=== PATIENT | female | born 1945 | race Caucasian/White ===

== ENCOUNTER → 2016-07-04 | Day surgery (SDC) | payer MEDICARE, BC ==
[~2016-07-04] MED LIST: ALLEGRA PO; ASPIRIN PO; ATORVASTATIN CA40 MG PO; BENADRYL25 M3 PO; CALCIUM 500 + D1 TAB PO; CALCIUM 600 +1 EAC1 PO; CELEBREX PO; CRESTOR PO; DIPROLENE 0.05%30 ML; FLOMAX0.4 M1 PO; FOSAMAX PO; GABAPENTIN400 M2 PO; LEXAPRO PO; NEURONTIN PO; OLUX-E 0.05% F100 GM; PERCOCET 10/3251 TAB PO; PREMARIN PO; PREMARIN0.3 MG PO; PROTONIX PO; PROTOPIC100 G1; SINGULAIR PO; URECHOLINE50 MG PO
--- NOTE | ~2016-07-04 | OR ---
Unit #: [id number] #: [id number] Patient: LINDA LOCO [id number] [address] [place], [place] [address] [id number] MR#: [id number] NAME: LINDA LOCO ROOM: Date of Procedure: 07/04/2016 Admission Date: 07/04/2016 Surgeon: Edwin Hunter M.D. : 1945 Attending Physician: Edwin Hunter M.D. OPERATIVE REPORT PREOPERATIVE DIAGNOSES Back pain, radiculopathy, postlumbar fusion, piriformis syndrome. POSTOPERATIVE DIAGNOSES Back pain, radiculopathy, postlumbar fusion, piriformis syndrome. PROCEDURE PERFORMED Left piriformis injection with intravenous sedation. DESCRIPTION OF PROCEDURE The patient was placed in a right lateral decubitus position. 2 mg of Versed were given for sedation and anxiolysis. Sterile prep and drape of the left buttock area was performed. The landmarks were identified and marked for piriformis injection usp between the greater trochanter at the initial tuberosity, a 25 gauge 2.5 inch needle was advanced perpendicularly to the skin. The needle was moved slightly lateral and cephalad until paresthesia achieved down the lower extremity at this point. Needle was retracted slightly. A total of 10 mL of 0.25% bupivacaine and 40 mg of Depo-Medrol were deposited. The patient tolerated this part of procedure well and was discharged to recovery room in stable condition. Dictated by... Paris Carney/jennifer TD: 07/25/2016 22:38 JOB #: [id number] CC: Olga Lidia/invision Please Delete OPERATIVE REPORT Page 1 of 1 X Edwin Hunter MD X PROCEDURE OPERATIVE NOTE
== END | disposition home or self-care (01) ==
LOC: CCSC 09:37
DX: G57.02 Lesion of sciatic nerve, left lower limb (principal); M54.9 Dorsalgia, unspecified; Z88.6 Allergy status to analgesic agent; Z91.048 Other nonmedicinal substance allergy status; Z79.52 Long term (current) use of systemic steroids; Z79.899 Other long term (current) drug therapy; Z98.1 Arthrodesis status
CPT/HCPCS: J1040; J2250

== ENCOUNTER → 2016-10-17 | Day surgery (SDC) | payer MEDICARE, BC ==
--- NOTE | ~2016-10-17 | OR ---
Unit #: [id number] #: [id number] Patient: LINDA LOCO [id number] [address] [place], [place] [address] [id number] O MR#: [id number] NAME: LINDA LOCO ROOM: Date of Procedure: 10/17/2016 Admission Date: 10/17/2016 Surgeon: Edwin Hunter M.D. : 1945 Attending Physician: Edwin Hunter M.D. Primary Care Physician: Generic Doctor Not In System OPERATIVE REPORT PREOPERATIVE DIAGNOSES Postlumbar fusion, back pain, degenerative sacroiliac joint, left sacroiliac joint pain. POSTOPERATIVE DIAGNOSES Postlumbar fusion, back pain, degenerative sacroiliac joint, left sacroiliac joint pain. PROCEDURE PERFORMED Left sacroiliac joint injection with intravenous sedation and fluoroscopic guidance for needle localization. INDICATIONS FOR PROCEDURE The patient is a 71-year-old female, status post extensive lumbar fusion. She has increased pain down to her left buttock, hip, and around to the groin. This consistent with sacroiliac joint dysfunction. This has been a problem in the past and response to sacroiliac joint injections, last done about 3 years ago. Based on history, pathology, symptomatology, and treatment response, plan is to repeat a sacroiliac joint injection today. DESCRIPTION OF PROCEDURE The patient was placed in a prone position. Standard monitors were applied. 2 mg of Versed were given for sedation and anxiolysis, which were adequate. Vital signs remained stable. Sterile prep and drape overlying the middle of the left sacroiliac joint was performed. A 22-gauge Quincke point needle was then advanced with fluoroscopic guidance to put the needle tip to within the edge of the left sacroiliac joint. After finally confirming proper positioning with fluoroscopy and radiographic contrast, a dose of 80 mg of Depo-Medrol and 5 mL of 0.25% bupivacaine were deposited. The needle was flushed and removed. The patient tolerated the procedure otherwise well and was discharged to the recovery room in stable condition. Dictated by... Paris Carney/jennifer TD: 10/17/2016 11:24 JOB #: [id number] CC: [facility] Unit #: [id number] #: [id number] Patient: LINDA LOCO OPERATIVE REPORT Page 1 of 1 X Edwin Hunter MD X PROCEDURE OPERATIVE NOTE
== END | disposition home or self-care (01) ==
LOC: CCSC 07:54
DX: M53.3 Sacrococcygeal disorders, not elsewhere classified (principal); Z88.5 Allergy status to narcotic agent; Z79.899 Other long term (current) drug therapy; Z98.1 Arthrodesis status
CPT/HCPCS: J1040; J2250